=== PATIENT | male | born 1975 ===

== ENCOUNTER 2025-07-31 17:22 | Emergency (ER) | payer SELFPAY ==
[~2025-07-31 17:22] MED LIST: Iopamidol 755 Mg/ML 100 ML Bottle IVPUSH ONE
[2025-07-31 17:31] LABS: BASOPHILS PERCENT AUTO 0.2 % (0.0-1.0); EOSINOPHILS PERCENT AUTO 0.3 % (1.0-3.0); LYMPHOCYTES PERCENT AUTO 12.7 % (20.5-50.1); MONOCYTES PERCENT AUTO 5.6 % (2-8); NEUTROPHILS PERCENT AUTO 81.2 % (42.2-75.2); PLATELET COUNT,PLT 236 10^3/uL (150-450); RED BLOOD CELL COUNT 5.02 10^6/uL (4.6-6.2); WHITE BLOOD CELL COUNT,WBC 9.4 10^3/uL (5.0-10.0)
[2025-07-31 17:53] LABS: A/G RATIO 1.3; ALANINE AMINOTRANSFERASE,ALT 62 U/L (16-63); ASPARTATE AMNIOTRANSFERASE,AST 25 U/L (15-37); BILIRUBIN TOTAL 0.6 mg/dL (0.2-1.0); BLOOD UREA NITROGEN,BUN 19 mg/dL (7-18); CARBON DIOXIDE,CO2 25 mmol/L (21-32); CHLORIDE,CL 106 mmol/L (98-107); CREATININE 1.24 mg/dL (0.70-1.30); GLUCOSE RANDOM 110 mg/dL (70-99); POTASSIUM,K 4.1 mmol/L (3.5-5.1); PROTEIN TOTAL,TP 7.2 g/dL (6.4-8.2); SODIUM,NA 140 mmol/L (136-145)
[2025-07-31 17:54] LABS: ESTIMATED GFR 72 mL/min (>=60); ETHANOL BLOOD MEDICAL < 3 mg/dL (0)
[2025-07-31 17:56] LABS: LACTIC ACID 1.0 mmol/L (0.4-2.0)
[2025-07-31 18:10] LABS: INR 1.0 (0.9-1.2)
[2025-07-31] MEDS: Ondansetron 4 MG/2 ML SDV IVPUSH ONE (18:47)
== END 2025-07-31 18:29 ==
LOC: DL.ED 17:22
DX: I63.311 Cerebral infarction due to thrombosis of right middle cerebral artery (principal); S00.511A Abrasion of lip, initial encounter; X58.XXXA Exposure to other specified factors, initial encounter
CPT/HCPCS: 36415; 37195; 70450; 70496; 70498; 72125; 80053; 80307; 82947; 83605; 83735; 85025; 85610; 86140; 93005; 96374; 99285; J2405; J3101